=== PATIENT | female | born 1955 | race Caucasian/White ===

== ENCOUNTER → 2023-07-20 06:41 | Outpatient (REF) | payer BC, SELFPAY ==
[2023-07-20 10:06] LABS: % Basophils 0.6 % (0-2); % Eosinophils 4.3 % (0-6); % Immature Granulocytes 0.3 % (0-0.5); % Lymphocytes 45.1 % (20.5-51.1); % Monocytes 11.5 % (1.7-9.3); % Neutrophils 38.2 % (42.2-75.2); Absolute Basophils 0.1 10^3/uL (0-0.2); Absolute Eosinophils 0.3 10^3/uL (0-0.7); Absolute Lymphocytes 3.6 10^3/uL (1.2-3.4); Absolute Monocytes 0.9 10^3/uL (0.1-0.6); Absolute Neutrophils 3.1 10^3/uL (1.4-6.5); Hematocrit 43.8 % (37.0-47.0); Mean Corp Hgb Conc. 34.2 g/dL (33.0-37.0); Mean Corpuscular Hgb 30.5 pg (27.0-31.0); Mean Corpuscular Volume 89.2 fL (81.0-99.0); Mean Platelet Volume 9.6 fL (7.4-10.4); Nucleated Red Blood Cells % 0 %; Platelet Count 289 10^3/uL (130-400); Red Blood Cell Count 4.91 10^6/uL (4.20-5.40); Red Cell Dist. Width 12.2 % (11.5-14.5)
[2023-07-20 10:33] LABS: Blood Urea Nitrogen 20 mg/dl (7-17); Calcium 9.3 mg/dl (8.4-10.2); Carbon Dioxide 33 mmol/L (22-30); Chloride 101 mmol/L (98-107); Glucose 133 mg/dl (70-99); Potassium 3.4 mmol/L (3.5-5.1); Sodium 140 mmol/L (135-145); eGFR > 60.00
== END ==
LOC: HWLAB 06:41
PROVIDERS: ATTENDING PHYSICIAN Orthopaedic Surgery Hand Surgery
DX: Z01.818 Encounter for other preprocedural examination (principal)
CPT/HCPCS: 36415; 80048; 85025; 93005

== ENCOUNTER 2023-08-14 06:23 | Day surgery (SDC) | payer BC, SELFPAY ==
--- NOTE | 2023-07-23 12:20 | PTCARENOTE ---
Patients 2/2 EKG abnormal- reviewed by Dr. Gar- no additional interventions required
--- NOTE | 2023-08-09 13:57 | PTCARENOTE ---
Potassium on 07/20/[address] Packer and Tiffani at Dr. Ponce's office made aware. No intervention needed.
[2023-08-14] VITALS (7 sets, daily range): BP systolic 129–161; BP diastolic 63–95; BMI 26.4
[2023-08-14] MEDS: TYLENOL 1000 MG PO (13:01)
[2023-08-14] MEDS: CELEBREX 200 MG PO (13:01)
[2023-08-14] MEDS: NORMOSOL-R 1000 IV (13:17)
--- NOTE | 2023-08-14 13:45 | PTCARENOTE ---
Patient sent over for a block at 1330. Will monitor patient.
== END 2023-08-14 18:42 | disposition home or self-care (01) ==
LOC: SDS 06:23
PROVIDERS: ATTENDING PHYSICIAN Orthopaedic Surgery Hand Surgery
DX: M75.122 Complete rotator cuff tear or rupture of left shoulder, not specified as traumatic (principal); M13.812 Other specified arthritis, left shoulder; M75.42 Impingement syndrome of left shoulder
CPT/HCPCS: 29827; 29826; 29824; C1713